=== PATIENT | female | born 1940 | race Caucasian/White ===

== ENCOUNTER 2017-06-05 23:47 | Emergency (ER) | payer OTHER ==
[~2017-06-05] VITALS: Ht 154.9 cm; Wt 68.0 kg
[~2017-06-05 23:47] MED LIST: METF850T37; RANI150T8; [UNRECOGNIZED DRUG - CODE]; [UNRECOGNIZED DRUG - CODE]
[2017-06-05 23:52] VITALS: BP 195/80
--- NOTE | 2017-06-06 01:02 | NUR ---
PATIENT LEFT WITHOUT BEING SEEN BY DR. HDEZ. NO FURTHER CARE PROVIDED FOR PATIENT.
== END 2017-06-06 01:02 | disposition left against medical advice (07) ==
LOC: MED 23:47
DX: H57.8 Other specified disorders of eye and adnexa (principal); Z53.21 Procedure and treatment not carried out due to patient leaving prior to being seen by health care provider